=== PATIENT | male | born 1970 | race Asian ===

== ENCOUNTER 2019-01-22 19:44 | Emergency (ER) | payer OTHER ==
[~2019-01-22] VITALS: Ht 185.4 cm; Wt 97.5 kg
[2019-01-22] MEDS ORDERED: ACETAMINOPHEN-1 EAC1 PO (20:33)
[2019-01-22 21:30] VITALS: BP 118/69
== END 2019-01-22 21:31 | disposition home or self-care (01) ==
LOC: M.ERS 19:44
DX: S62.112A Displaced fracture of triquetrum [cuneiform] bone, left wrist, initial encounter for closed fracture (principal); S20.211A Contusion of right front wall of thorax, initial encounter; S80.211A Abrasion, right knee, initial encounter; W18.39XA Other fall on same level, initial encounter; Y92.89 Other specified places as the place of occurrence of the external cause; Y93.89 Activity, other specified; Y99.8 Other external cause status; Z88.8 Allergy status to other drugs, medicaments and biological substances